=== PATIENT | male | born 1985 | race African-American/Black ===

== ENCOUNTER 2016-09-17 12:17 | Emergency (ER) | payer OTHER ==
[2016-09-17 12:16] LABS: BASOPHIL# 0.1 X10e3 (0-0.3); BASOPHIL% 0.5 % (0-2.5); EOSINOPHIL% 0.2 % (0.0-7.0); HEMATOCRIT 33.5 % (38.0-50.0); HEMOGLOBIN 10.8 gm/dL (13.0-16.0); LYMPHOCYTE# 0.7 X10e3 (1.0-3.5); LYMPHOCYTE% 2.7 % (17.0-45.0); MEAN CELL VOLUME 79.5 FL (83-96); MEAN CORPUSCULAR HEMOGLOBIN 25.5 PG (28-34); MEAN CORPUSCULAR HGB CONC 32.1 g/dL (30-36); MONOCYTE# 3.8 X10e3 (0-1.0); MONOCYTE% 14.7 % (3.0-12.0); NEUTROPHIL# 21.4 X10e3 (1.5-7.1); NEUTROPHIL% 81.9 % (40-75); RED BLOOD COUNT 4.21 X10e (3.90-5.60); RED CELL DISTRIBUTION WIDTH 15.9 % (11.0-15.5); WHITE BLOOD COUNT 26.1 X10e3 (4.0-10.5)
[~2016-09-17 12:17] MED LIST: ACID CONTROL150 MG PO; BACLOFEN20 M1 PO; DOXEPIN HCL50 M1 PO; GABAPENTIN800 MG PO; TYLENOL #3
[2016-09-17 12:28] LABS: DIFF IND YES
[2016-09-17 12:50] LABS: ALBUMIN SERUM 2.2 g/dL (3.5-5.0); ALKALINE PHOSPHATASE 76 U/L (32-92); ALT (SGPT) 15 U/L (10-40); AST (SGOT) 37 U/L (10-42); BILIRUBIN,INDIRECT 0.8 mg/dL (0.0-0.9); BILIRUBIN,TOTAL 1.8 mg/dL (0.2-2.0); BLOOD UREA NITROGEN 34 mg/dL (9-23); BUN/CREATININE RATIO 26.15; CALCIUM SERUM 7.3 mg/dL (8.4-10.2); CARBON DIOXIDE 26 mmol/L (22-31); CHLORIDE 95 mmol/L (100-111); CREATININE SERUM 1.3 mg/dL (0.6-1.4); GLOM FILT RATE Estimated ABOVE60 mL/min (>60); GLUCOSE FASTING 146 mg/dL (70-110); LIPASE 10 U/L (22-51); POTASSIUM 4.5 mmol/L (3.5-5.1); PROTEIN TOTAL SERUM 6.9 g/dL (6.0-8.3); SODIUM 127 mmol/L (135-145)
[2016-09-17 13:02] LABS: ANISOCYTOSIS SL; PLATELET COUNT 109 X10e3 (140-420); PLATELET ESTIMATE DECREASED (NORMAL); TARGET CELLS SL; TOXIC GRANULATION SL; VACUOLIZATION SL
== END 2016-09-17 14:34 | disposition home or self-care (01) ==
LOC: CED 12:17
PROVIDERS: Emergency Medicine
DX: E86.0 Dehydration (principal); F17.200 Nicotine dependence, unspecified, uncomplicated
CPT/HCPCS: 36415; 80048; 80076; 83690; 85025; 96361; 96374; 99284; J2405